=== PATIENT | female | born 1965 | race Caucasian/White ===

== ENCOUNTER → 2024-03-10 | Day surgery (SDC) | payer OTHER ==
[~2024-03-10] MED LIST: CRESTOR40 MG; FENTANYL CITRATE/PF 100MCG/2 ML INJ ONE; FLONASE ALLERG9.9 ML INH; GLYCOPYRROLATE INJ 0.2 MG/ML VIAL ONE; LIDOCAINE HCL 2% LOCAL INJ 5 ML SDV VIAL INJ ONE; MELATONIN3 MG PO; MIDAZOLAM HCL 2 MG/2 ML VIAL ONE; MULTI-VITAMIN1 EACH PO; OS-CAL 500+D T1 EACH PO; PRILOSEC OTC20 MG; PROBIOTIC; PROPOFOL IV EMULSION 10 MG/ML 20 ML VIAL ONE; VITAMIN D; XYZAL5 MG
[2024-03-10] MEDS: LACTATED RINGER'S 1,000 ML ONE (12:59)
[2024-03-10 14:24] VITALS: TEMP 97
[2024-03-10 14:50] VITALS: BP 120/72; PULSE 88; RESP 16; O2SAT 98
== END | disposition home or self-care (01) ==
LOC: OR 12:10
PROVIDERS: ATTEND Internal Medicine Gastroenterology
DX: Z12.11 Encounter for screening for malignant neoplasm of colon (principal); D12.0 Benign neoplasm of cecum; D12.4 Benign neoplasm of descending colon; K57.30 Diverticulosis of large intestine without perforation or abscess without bleeding; K64.8 Other hemorrhoids; K21.9 Gastro-esophageal reflux disease without esophagitis; R03.0 Elevated blood-pressure reading, without diagnosis of hypertension; E78.5 Hyperlipidemia, unspecified; Z88.6 Allergy status to analgesic agent; Z91.041 Radiographic dye allergy status; Z88.8 Allergy status to other drugs, medicaments and biological substances; Z91.010 Allergy to peanuts; Z01.810 Encounter for preprocedural cardiovascular examination; Z79.899 Other long term (current) drug therapy
CPT/HCPCS: 45380; 45384; 93005; J2001; J2250; J2704; J3010; J7121